=== PATIENT | male | born 1995 | race Caucasian/White ===

== ENCOUNTER 2018-10-21 20:48 | Emergency (ER) | payer SELFPAY ==
[~2018-10-21] VITALS: Ht 182.9 cm; Wt 77.1 kg
[2018-10-21 21:05] VITALS: Ht 182.9 cm; Wt 77.1 kg
[2018-10-21 23:10] VITALS: BP 128/72
== END 2018-10-21 23:10 | disposition home or self-care (01) ==
LOC: ED 20:48
DX: S39.012A Strain of muscle, fascia and tendon of lower back, initial encounter (principal); J45.909 Unspecified asthma, uncomplicated; F17.210 Nicotine dependence, cigarettes, uncomplicated; Z71.6 Tobacco abuse counseling; X58.XXXA Exposure to other specified factors, initial encounter; Y93.89 Activity, other specified; Y92.89 Other specified places as the place of occurrence of the external cause; Y99.8 Other external cause status
CPT/HCPCS: 99406; J1885